=== PATIENT | female | born 1935 | race Hispanic/Latino ===

== ENCOUNTER → 2022-06-21 | Outpatient (CLI) | payer MEDICARE | LOC: RAD 14:12 | PROVIDERS: ATTEND Internal Medicine | DX: Z01.818 Encounter for other preprocedural examination (principal); I11.9 Hypertensive heart disease without heart failure | CPT/HCPCS: 71046 ==

== ENCOUNTER → 2022-07-03 | Outpatient (CLI) | payer MEDICARE | LOC: MRI 10:35 | PROVIDERS: ATTEND Internal Medicine | DX: R26.0 Ataxic gait (principal); R29.6 Repeated falls | CPT/HCPCS: 70551 ==

== ENCOUNTER 2022-07-16 06:59 | Observation (INO) | payer MEDICARE ==
[~2022-07-16] VITALS: Ht 152.4 cm; Wt 64.4 kg
[~2022-07-16 06:59] MED LIST: ASPIRIN81 MG PO; ATORVASTATIN CA20 MG PO; LEXAPRO20 MG PO; METFORMIN HCL500 MG PO; VITAMIN B-121000 MCG PO; VITAMIN D3250 MCG PO
[2022-07-16] MEDS ORDERED: DEXAMETHASONE SOD PHOS 10 MG/1 ML VIAL ONE (07:37)
[2022-07-16] MEDS ORDERED: GABAPENTIN 300 MG CAP ONE (07:37)
[2022-07-16] MEDS ORDERED: CELECOXIB 200 MG CAP ONE (07:37)
[2022-07-16] MEDS ORDERED: ROPIVACAINE 246.25 MG, EPINEPHRINE HCL 1:1000 1ML 0.5 MG, CLONIDINE HCL 0.08 MG, KETORO... INJ ONE ×5 (08:00)
[2022-07-16] MEDS ORDERED: SODIUM CHLORIDE 0.9% 500ML 500 ML ONE (09:01)
[2022-07-16] MEDS ORDERED: TRANEXAMIC ACID 20 ML ONE (09:01)
[2022-07-16] MEDS ORDERED: Vancomycin IV 1,000 MG ONE (09:01)
[2022-07-16] MEDS ORDERED: DEXMEDETOMIDINE HCL 2 ML ONE (10:22)
[2022-07-16] MEDS ORDERED: ZOLPIDEM TARTRATE 5 MG TAB PO PRN (11:00)
[2022-07-16] MEDS ORDERED: DIPHENHYDRAMINE HCL INJ 50 MG/ML VIAL IV PRN (11:00)
[2022-07-16] MEDS ORDERED: ACETAMINOPHEN 650 MG SUPP PR PRN (11:00)
[2022-07-16] MEDS ORDERED: DOCUSATE SODIUM 100 MG CAP PO PRN (11:00)
[2022-07-16] MEDS ORDERED: HYDROCODONE/APAP 5MG-325MG TAB PO PRN (11:00)
[2022-07-16] MEDS ORDERED: ONDANSETRON HCL INJ 2MG/ML 2ML 2 MG/ML VIAL IV PRN (11:00)
[2022-07-16] MEDS ORDERED: HYDROCODONE/APAP 7.5MG-325MG 1 EA TAB PO PRN (11:00)
[2022-07-16] MEDS ORDERED: SUGAMMADEX SODIUM 200 MG/2 ML VIAL IV ONE (11:13)
[2022-07-16] MEDS ORDERED: FENTANYL CITRATE/PF 100MCG/2 ML INJ ONE (12:33)
[2022-07-16 13:02] VITALS: BP 113/55
[2022-07-16 13:09] VITALS: BP 113/55
[2022-07-16] MEDS ORDERED: SODIUM CHLORIDE 0.9% 1000ML 1,000 ML IV SCH (13:30)
[2022-07-16] MEDS ORDERED: LABETALOL HCL 5 MG/ML 20ML VIAL ONE (13:43)
[2022-07-16] MEDS ORDERED: POVIDONE IODINE 0.05% 0.05 % ML PO ONE (13:43)
[2022-07-16] MEDS ORDERED: GLYCOPYRROLATE INJ 0.2 MG/ML VIAL ONE (13:43)
[2022-07-16] MEDS ORDERED: SEVOFLURANE INHAL SOLN 250 ML PEN BTL ONE (13:43)
[2022-07-16] MEDS ORDERED: NEOSTIGMINE 1 MG/ML 10ML VIAL ONE (13:43)
[2022-07-16] MEDS ORDERED: DEXAMETHASONE SOD PHOS INJ 4 MG/ML SDV ONE (13:43)
[2022-07-16] MEDS ORDERED: EPHEDRINE SULFATE INJ 50 MG/ML VIAL ONE (13:43)
[2022-07-16] MEDS ORDERED: ROCURONIUM BROMIDE 10 MG/ML 5ML VIAL IV ONE (13:43)
[2022-07-16] MEDS ORDERED: PROPOFOL IV EMULSION 10 MG/ML 20 ML VIAL ONE (13:43)
[2022-07-16] MEDS ORDERED: ESMOLOL HCL 100MG/10ML 10 MG/ML VIAL ONE (13:43)
[2022-07-16] MEDS ORDERED: ONDANSETRON HCL INJ 2MG/ML 2ML 2 MG/ML VIAL ONE (13:43)
[2022-07-16] MEDS ORDERED: CEPACOL SORE THROAT LOZENGES PO PRN (14:45)
[2022-07-16 16:10] VITALS: BP 111/52
[2022-07-16] MEDS ORDERED: DEXTROSE 50% SYRINGE 50 ML IV PRN (16:15)
[2022-07-16] MEDS ORDERED: INSULIN REGULAR, HUMAN 100 UNIT/1 ML SQ SCH (16:30)
[2022-07-16] MEDS ORDERED: ASPIRIN 325 MG TAB PO SCH (17:00)
[2022-07-16] MEDS ORDERED: CELECOXIB 200 MG CAP PO SCH (17:00)
[2022-07-17] MEDS ORDERED: ACETAMINOPHEN 1000 MG/100 ML IV PRN (11:00)
== END 2022-07-16 18:46 | disposition home or self-care (01) ==
LOC: OR 06:59 → PACU V 11:10 → MED/SURG 12:24
PROVIDERS: ADMIT Specialist; ATTEND Specialist
DX: M17.12 Unilateral primary osteoarthritis, left knee (principal); I10 Essential (primary) hypertension; Z20.822 Contact with and (suspected) exposure to COVID-19; Z01.818 Encounter for other preprocedural examination; Z88.0 Allergy status to penicillin; E11.69 Type 2 diabetes mellitus with other specified complication; E78.5 Hyperlipidemia, unspecified
CPT/HCPCS: 0223U; 27447; 36415 ×2; 71046; 73560; 82948; 86850; 86900; 86920; 93005; 94799; 97110; 97116; 97161; 97530 ×2; C1713; G0378; J0171; J0690; J1100 ×2; J1885; J2405; J2704; J2710; J2795; J3010; J3370; J3490; J7040; C1776